=== PATIENT | female | born 1965 | race Caucasian/White ===

== ENCOUNTER 2018-04-14 09:41 | Emergency (ER) | payer OTHER ==
[~2018-04-14] VITALS: Ht 175.3 cm; Wt 145.0 kg
[2018-04-14 09:49] VITALS: BP 164/72; PULSE 127; RESP 16; TEMP 98.4; O2SAT 98
[2018-04-14] MEDS ORDERED: [UNRECOGNIZED DRUG - OTHER] (09:57)
[2018-04-14] MEDS ORDERED: SPIRCAP INH (09:57)
[2018-04-14] MEDS ORDERED: LABE100T2 PO (09:57)
[2018-04-14] MEDS ORDERED: KETOROLAC TROMETHAMINE 60 MG/2 ML (IM) VIAL IM ONE (10:30)
[2018-04-14] MEDS ORDERED: PROMETHAZINE HCL 25 MG TAB PO ONE (10:30)
[2018-04-14] MEDS ORDERED: ROBA750T PO (10:31)
[2018-04-14] MEDS ORDERED: IBUP1TAB7 PO (10:31)
[2018-04-14] MEDS ORDERED: TRAM50 PO (10:31)
--- NOTE | 2018-04-14 10:31 | PD ---
HPI Chief Complaint: Musculoskeletal Complaint Time Seen by Provider: 10:04 Travel History International Travel<30 days: No Contact w/Intl Traveler<30days: No Traveled to known affect area: No History of Present Illness HPI This is a 52-year-old female here with right trapezius muscle pain 5 days. She reports she lifted her child's car seat and felt immediate pain within the trapezius muscle. She had a prior trapezius muscle tear several years ago and this feels similar. Over the last 5 days the pain has not improved with OTC Motrin. She reports the pain is making her nauseous and is requesting Phenergan. She denies chest pain, palpitations, shortness of breath. The pain is localized to the right trapezius muscle and is reproducible to palpation and increased with range of motion of the neck and right shoulder. Symptom severity is moderate. PFSH Past Medical History Asthma: Yes Hypertension: Yes ?: Not Past Surgical History Appendectomy: Yes Section: Yes Cholecystectomy: Yes Tonsillectomy: Yes Social History Alcohol Use: No Tobacco Use: No Substance Use: No Allergies-Medications (Allergen,Severity, Reaction): Coded Allergies: ondansetron (Verified Allergy, Unknown, 04/14/18) povidone-iodine (Verified Allergy, Unknown, 04/14/18) soap (Verified Allergy, Unknown, 04/14/18) vancomycin (Verified Allergy, Unknown, 04/14/18) Reported Meds & Prescriptions Reported Meds & Active Scripts Active Ultram (Tramadol HCl) 50 Mg Tab 50 Mg PO Q6H PRN Robaxin (Methocarbamol) 750 Mg Tab 750 Mg PO QID Ibuprofen 800 Mg Tab 800 Mg PO Q6HR PRN Reported Spiriva Handihaler (Tiotropium Inh) 18 Mcg Cap 18 Mcg INH DAILY 1 capsule = 18 mcg Labetalol (Labetalol HCl) 100 Mg Tab 100 Mg PO BID Review of Systems Except as stated in HPI: all other systems reviewed are Neg General / Constitutional: No: Fever Eyes: No: Visual changes HENT: No: Headaches Cardiovascular: No: Chest Pain or Discomfort Respiratory: No: Shortness of Breath Gastrointestinal: Positive: Nausea Genitourinary: No: Dysuria Musculoskeletal: Positive: Pain (Right trapezius muscle pain) Skin: No Rash Neurologic: No: Weakness Physical Exam Narrative GENERAL: Alert and well-appearing 52-year-old female SKIN: Warm and dry. HEAD: Normocephalic. EYES: No injection or drainage. NECK: Supple, trachea midline. +TTP right trapezius muscle with muscle spasm present. No cervical midline tenderness. Limited range of motion due to pain in the right trapezius muscle CARDIOVASCULAR: Regular rate and rhythm without murmurs, gallops, or rubs. RESPIRATORY: Breath sounds equal bilaterally. No accessory muscle use. GASTROINTESTINAL: Abdomen soft, non-tender, nondistended. MUSCULOSKELETAL: No cyanosis, or edema. BACK: Nontender without obvious deformity. No CVA tenderness. Data Data Last Documented VS Vital Signs Date Time Temp Pulse Resp B/P (MAP) Pulse Ox O2 Delivery O2 Flow Rate FiO2 04/14/18 09:49 98.4 127 16 164/72 (102) 98 Orders Orders Ketorolac Inj (Toradol Inj) (04/14/18 10:30) Promethazine (Phenergan) (04/14/18 10:30) MDM Medical Decision Making Medical Screen Exam Complete: Yes Emergency Medical Condition: Yes Differential Diagnosis Trapezius muscle strain, rotator cuff injury, torticollis, ACS unlikely Narrative Course This is a 52-year-old female here with right trapezius muscle pain and muscle spasm. She had a prior trapezius muscle tear several years ago with similar symptoms. She is well-appearing. She was given a shot of Toradol and Phenergan for her chronic nausea and reports symptom improvement. She is stable and ready for discharge. Return precautions discussed. Diagnosis Primary Impression: Trapezius muscle spasm Referrals: Primary Care Physician Additional Instructions: Medication as directed. Ice and/or heat for muscle spasm. Return to the emergency department if you have new or worsening symptoms Scripts Tramadol (Ultram) 50 Mg Tab 50 MG PO Q6H Y for PAIN, #10 TAB 0 Refills Prov: Raquel Beck 04/14/18 Methocarbamol (Robaxin) 750 Mg Tab 750 MG PO QID for Muscle Spasm, #12 TAB 0 Refills Prov: Raquel Beck 04/14/18 Ibuprofen (Ibuprofen) 800 Mg Tab 800 MG PO Q6HR Y for PAIN, #40 TAB 0 Refills Prov: Raquel Beck 04/14/18 Disposition: 01 DISCHARGE HOME Condition: Stable Raquel Beck April 14, 2018 10:31
== END 2018-04-14 10:42 | disposition home or self-care (01) ==
LOC: PHEFT 09:41
DX: M62.838 Other muscle spasm (principal); X50.0XXA Overexertion from strenuous movement or load, initial encounter; I10 Essential (primary) hypertension; J45.909 Unspecified asthma, uncomplicated; Z88.8 Allergy status to other drugs, medicaments and biological substances; Z79.899 Other long term (current) drug therapy
CPT/HCPCS: 96372; 99283; J1885; Q0169